=== PATIENT | female | born 1995 | race Caucasian/White ===

== ENCOUNTER 2019-12-15 07:41 | Observation (INO) | payer OTHER, SELFPAY ==
[2019-12-15] VITALS (13 sets, daily range): BP systolic 118–166; BP diastolic 78–103; PULSE 93–119; RESP 14–24; TEMP 36.8–37.2; O2SAT 98–100; BMI 41.5
--- NOTE | 2019-12-15 07:58 | ECG_ITS ---
Measurements Intervals [place] Rate: 89 P: 22 CA: 148 QRS: 11 QRSD: 76 T: 8 QT: 325 QTc: 397 Interpretive Statements SINUS RHYTHM BORDERLINE T WAVE ABNORMALITY- ANT/INF LEADS BASELINE ARTIFACT- I, II, III, AVF BORDERLINE ECG Electronically Signed On 12-15-2019 8:14:27 CDT by Frederic Gusman D.O.
[2019-12-15 08:12] LABS: Basophils Absolute Auto 0.1 K/mm3 (0.0-0.1); Basophils Percent Auto 0.8 % (0.2-1.2); Eosinophils Absolute Auto 0.3 K/mm3 (0-0.3); Eosinophils Percent Auto 4.3 % (0-4.4); Hematocrit 39.4 % (37.0-47.0); Hemoglobin 12.7 g/dL (12.0-15.0); Immature Granulocyte Absolute 0.03 K/mm3 (0.00-0.031); Immature Granulocyte Percent A 0.4 % (0-0.5); Lymphocytes Absolute Auto 2.28 K/mm3 (0.9-3.2); Lymphocytes Percent Auto 31.4 % (18.3-44.2); Mean Corpuscular HGB Conc 32.2 g/dl (32-36); Mean Corpuscular Hemoglobin 27.3 pg (26-34); Mean Corpuscular Volume 84.7 fl (80-100); Mean Platelet Volume 9.4 fl (7.4-10.4); Monocytes Absolute Auto 0.5 K/mm3 (0.1-0.6); Monocytes Percent Auto 6.6 % (2.6-8.5); Neutrophils Absolute Auto 4.1 K/mm3 (1.3-6.7); Neutrophils Percent Auto 56.5 % (45.5-73.1); Platelet Count Result 394 k/mm3 (150-375); Red Blood Count 4.65 M/mm3 (4.2-5.4); Red Cell Distribution Width 13.8 % (11.5-14.5); White Blood Count 7.3 K/mm3 (4.5-10.0)
--- NOTE | 2019-12-15 08:15 | PC.NURSE ---
Spoke with pharmacist Kassy from [place] [facility]. They will be faxing information about the potential drug overdose.
[2019-12-15 08:17] LABS: Add Urine Microscopic? YES; Appearance Urine Clear (Clear); Bacteria Urine Trace /hpf; Bilirubin Urine Negative (Negative); Blood Urine Negative (Negative); Color Urine Yellow (Yellow); Glucose Urine UA Negative (Negative); Ketones Urine Trace mg/dL (Negative); Leukocyte Esterase Ur Trace LEU/UL (Negative); Mucus Urine Rare /lpf; Nitrate Urine Negative (Negative); Protein Urine 2+ mg/dL (Negative); Squamous Epithelial Cell Urine Many /hpf (Few); Urobilinogen Urine Negative mg/dL (<2.0)
[2019-12-15 08:24] LABS: Acetaminophen < 10 ug/mL (10-30); Ethanol < 10 mg/dL (<10); Salicylate < 1.0 mg/dL (2-20)
[2019-12-15 08:25] LABS: Alanine Aminotransferase 14 U/L (4-35); Albumin Level 4.3 g/dL (3.5-5.1); Alkaline Phosphatase 53 U/L (38-126); Aspartate Amino Transferase 21 U/L (14-36); Bilirubin,Total 0.3 mg/dL (0.2-1.3); Blood Urea Nitrogen 11 mg/dL (7-17); Calcium 9.1 mg/dL (8.4-10.2); Carbon Dioxide 24 mmol/L (22-30); Chloride 107 mmol/L (98-107); Estimated CRCL calculation 119 ml/min; Estimated Glomerular Filt Rate > 60; Glucose 112 mg/dL (65-105); Potassium 3.8 mmol/L (3.4-5.0); Sodium 139 mmol/L (137-145)
[2019-12-15 08:28] LABS: Amphetamine Screen Urine Negative (Negative); Barbiturate Screen Urine Negative (Negative); Benzodiazepines Screen Urine Negative (Negative); Cannabinoid Screen Urine Negative (Negative); Cocaine Screen Urine Negative (Negative); Methadone Screen Urine Negative (Negative); Opiate Screen Urine Negative (Negative); Phencyclidine Screen Urine Negative (Negative)
--- NOTE | 2019-12-15 08:45 | ED.OVERDOSE ---
HPI - Overdose General Chief Complaint: Overdose Stated Complaint: SI History of Present Illness HPI Narrative: Patient is a 24-year-old female who presents ER with a suicide attempt by overdosing on Effexor. She took 20 tablets of 150 mg strength Effexor. She ingested around 630/7 a.m. She reports she has had increased stress over the last month trying to move out of her boyfriend's parents house. She was in a fight with some coworkers today that caused her to attempt to end her life. She attempted suicide one other time when she was a teenager but was not hospitalized for this. She has not been using any drugs or alcohol that could be affecting her ability to make decisions. No HI/hallucinations. Patient reports she has been cutting as well to alleviate her stress and cut her right leg near the buttock a few days ago. Related Data Home Medications Medication Instructions Recorded Confirmed venlafaxine 150 mg PO DAILY 12/15/19 12/15/19 Allergies Allergy/AdvReac Type Severity Reaction Status Date / Time nickel AdvReac Rash Verified 08/06/19 09:24 Review of Systems Review of Systems: All systems reviewed & are unremarkable except as noted in HPI and below Psychiatric: Psychiatric: Reports depression, Denies homicidal ideation and Reports suicidal ideation [facility] Past Medical History Medical History (Updated 12/15/19 @ 10:39 by Brice Mendez MD) Anxiety Depression Previous known suicide attempt PTSD (post-traumatic stress disorder) Surgical History Surgical History (Updated 12/15/19 @ 10:24 by Brice Mendez MD) No pertinent past surgical history Social History Social History (Updated 12/15/19 @ 10:24 by Brice Mendez MD) Smoking status: Never smoker Exam Narrative: Exam Narrative: GENERAL: Well-appearing, obese, and tearful. HEAD: Normocephalic, atraumatic. ENT: Mucous membranes moist. CHEST: Clear to auscultation. No respiratory distress. HEART: Regular rate and rhythm. No murmur heard. Normal peripheral pulses. ABDOMEN: Soft, nontender, nondistended. EXTREMITIES: Normal range of motion. No edema. SKIN: Warm, dry, no rash. NEURO: Alert and oriented x3. PSYCH: Depressed and tearful, endorses suicidal ideation, no homicidal ideation. Denies hallucinations and does not seem to be responding to internal stimuli. Course Course Emergency Course: Accepted by the hospitalist service. Patient will need to be observed for 24 hours due to increased risks of seizures for the next 24 hours according to poison control. Vital Signs Vital signs: Vital Signs Temperature 98.9 F 12/15/19 07:38 Pulse Rate 110 H 12/15/19 07:38 Respiratory Rate 18 12/15/19 07:38 Blood Pressure 166/78 H 12/15/19 07:38 Pulse Oximetry 99 12/15/19 07:38 Temperature 98.9 F 12/15/19 07:38 Pulse Rate 98 12/15/19 09:53 Respiratory Rate 24 H 12/15/19 09:53 Blood Pressure 118/78 12/15/19 09:53 Pulse Oximetry 100 12/15/19 09:53 MDM - Overdose Lab Data Result diagrams: 12/15/19 08:03 12/15/19 08:03 Labs: Lab Results 12/15/19 12/15/19 12/15/19 Range/Units 08:03 08:03 08:03 WBC 7.3 (4.5-10.0) K/mm3 RBC 4.65 (4.2-5.4) M/mm3 Hgb 12.7 (12.0-15.0) g/dL Hct 39.4 (37.0-47.0) % MCV 84.7 (80-100) fl MCH 27.3 (26-34) pg MCHC 32.2 (32-36) g/dl RDW 13.8 (11.5-14.5) % Plt Count 394 H (150-375) k/mm3 MPV 9.4 (7.4-10.4) fl Immature Gran % (Auto) 0.4 (0-0.5) % Neut % (Auto) 56.5 (45.5-73.1) % Lymph % (Auto) 31.4 (18.3-44.2) % [place] % (Auto) 6.6 (2.6-8.5) % Eos % (Auto) 4.3 (0-4.4) % Baso % (Auto) 0.8 (0.2-1.2) % Lymph # (Auto) 2.28 (0.9-3.2) K/mm3 [place] # (Auto) 0.5 (0.1-0.6) K/mm3 Eos # (Auto) 0.3 (0-0.3) K/mm3 Baso # (Auto) 0.1 (0.0-0.1) K/mm3 Abs Immat Gran (auto) 0.03 (0.00-0.031) K/mm3 Absolute Neuts (auto) 4.1 (1.3-6.7) K/mm3 Absolute Nuclea
[2019-12-15 09:17] LABS: Creatine Kinase 79 U/L (30-135)
[2019-12-15] MEDS: SODIUM CHLORIDE 0.9% IV 1,000 ML 999 ML IV CONT (09:31)
--- NOTE | 2019-12-15 10:21 | PC.NURSE ---
Kassy from [place] [facility] called back for update about Pt. status. Pt. currently stable.
[2019-12-15] MEDS: SODIUM CHLORIDE 0.9% IV 1,000 ML 125 ML IV CONT ×2 (11:00→19:55)
--- NOTE | 2019-12-15 11:50 | ADMGEN ---
This patient, Clau Junior, was admitted to Intensive Care Unit-8. Patient/family oriented to hospital policies and general routines including ID bracelet, bed and alarms, visiting hours, pain management, procedures, bathroom and other care routines, personal items, smoking policy, room service/diet, and visiting hours. Valuables list has been completed. Information on how to activate the Rapid Response Team has been discussed. Patient/Family are encouraged to report perceived risks to care and to ask questions if they do not understand what they are told or what they should do.
--- NOTE | 2019-12-15 16:06 | PM.IMHP ---
H&P: HPI History of Present Illness Chief complaint: suicide attempt,overdose Narrative: Clau Junior is a 24 year old female who has a history of having depression and anxiety. The patient has been on a Effexor. She has been feeling stressed out over the last month. She is also a cutter. She cuts to relieve the pain. The patient is very anxious about covid 19. She is fearful of people getting too close to her. There is a gentleman at her work that constantly gets too close to her on purpose. She also has a boss that she feels is very area get. He says very negative things about the working environment and causes stress at her work place. They are provided and 95 mask at work. She wears her mask every day when she goes to work. She works for [employer]. She is also stressed out about living with her boyfriend's mother at this time. His mother is immunosuppressed and she is fearful of breaking the virus home to his mother. She is not having any symptoms. No fever no chills. Today she went to work as usual and had that bad and interaction with a co-worker. She felt like she could not control it was going on except for her own life. She felt like she could not control the situation which she could control unknown body. She decided to overdose. She took 20/150 mg of Effexor around 6:37 a.m. this morning every [employer] to work about 5:00 a.m. this morning. She did have previous suicide attempt when she was younger. She stated that she took many [id number] medications educated her recall what all she took at that time. She was not admitted at that time. However she has been in [place] lower before. She knew she needed help at that time and got admitted to catheter. Patient is awake and answering questions without difficulty. IV fluids were started on her she was admitted to the intensive care unit. Review of Systems Review of Systems: All systems reviewed & are unremarkable except as noted in HPI and below Constitutional: Constitutional: Reports as per HPI and Reports no additional constitutional complaints Eyes: Eyes: Reports as per HPI and Reports no additional eye complaints ENT: Reports system reviewed and no additional complaints, except as documented and Reports Normal hearing present Cardiovascular: Cardiovascular: Reports no additional cardiovascular complaints Respiratory: Respiratory: Reports no additional respiratory complaints and Reports no additional respiratory complaints Gastrointestinal: Gastrointestinal: Reports as per HPI and Reports no additional gastrointestinal complaints Musculoskeletal: Musculoskeletal: Reports no additional musculoskeletal complaints Integumentary/Breasts: Skin/Breast: Reports system reviewed and no additional complaints, except as docu and Reports as per HPI Neurologic: Reports system reviewed and no additional complaints, except as documented, Reports as per HPI and Reports Normal hearing present Psychiatric: Psychiatric: Reports no additional psychiatric complaints and Reports as per HPI Endocrine: Endocrine: Reports no additional endocrine complaints Hematologic/Lymphatic: Hematologic/Lymphatic: Reports no additional hematologic/lymphatic complaints Allergic/Immunologic: Allergic/Immunologic: Reports no additional allergic/immunologic complaints [facility] Past Medical History Medical History (Updated 12/15/19 @ 16:17 by Rebecca Canela NP) Anxiety Depression Previous known suicide attempt PTSD (post-traumatic stress disorder) Surgical History Surgical History No pertinent past surgical history Family History Family History Father Heart disease Diabetes mellitus Mother Heart disease Diabetes mellitus Social History Social History (Updated 12/15/19 @ 16:21 by Rebecca Canela NP) Social History: 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
[2019-12-16] VITALS (10 sets, daily range): BP systolic 123–133; BP diastolic 83–92; PULSE 78–106; RESP 20–26; TEMP 36.7–37.2; O2SAT 96–100
[2019-12-16] MEDS: SODIUM CHLORIDE 0.9% IV 1,000 ML 125 ML IV CONT (03:34)
[2019-12-16 05:11] LABS: Basophils Percent Auto 0.5 % (0.2-1.2); Eosinophils Absolute Auto 0.3 K/mm3 (0-0.3); Eosinophils Percent Auto 3.5 % (0-4.4); Hematocrit 36.3 % (37.0-47.0); Hemoglobin 11.6 g/dL (12.0-15.0); Immature Granulocyte Absolute 0.04 K/mm3 (0.00-0.031); Immature Granulocyte Percent A 0.5 % (0-0.5); Lymphocytes Percent Auto 34.2 % (18.3-44.2); Mean Corpuscular Hemoglobin 27.8 pg (26-34); Mean Corpuscular Volume 86.8 fl (80-100); Mean Platelet Volume 9.5 fl (7.4-10.4); Monocytes Absolute Auto 0.4 K/mm3 (0.1-0.6); Monocytes Percent Auto 4.9 % (2.6-8.5); Neutrophils Absolute Auto 4.6 K/mm3 (1.3-6.7); Neutrophils Percent Auto 56.4 % (45.5-73.1); Platelet Count Result 342 k/mm3 (150-375); Red Blood Count 4.18 M/mm3 (4.2-5.4); White Blood Count 8.2 K/mm3 (4.5-10.0)
[2019-12-16 05:28] LABS: Alanine Aminotransferase 11 U/L (4-35); Albumin Level 3.6 g/dL (3.5-5.1); Alkaline Phosphatase 46 U/L (38-126); Aspartate Amino Transferase 19 U/L (14-36); Bilirubin,Total 0.3 mg/dL (0.2-1.3); Blood Urea Nitrogen 6 mg/dL (7-17); Calcium 8.2 mg/dL (8.4-10.2); Carbon Dioxide 26 mmol/L (22-30); Chloride 105 mmol/L (98-107); Estimated CRCL calculation 140 ml/min; Estimated Glomerular Filt Rate > 60; Glucose 89 mg/dL (65-105); Magnesium 1.9 mg/dL (1.6-2.3); Potassium 4.2 mmol/L (3.4-5.0); Sodium 138 mmol/L (137-145)
[2019-12-16 07:09] LABS: Free T4 Free Thyroxine Reflex 0.73 ng/dL (0.78-2.19)
[2019-12-16] MEDS: ENOXAPARIN 40 MG/0.4 ML SYRINGE SUB-Q (07:44)
--- NOTE | 2019-12-16 10:10 | PM.IMPN ---
Progress Note: A&P Assessment and Plan (1) Suicide attempt: Code(s): T14.91XA - Suicide attempt, initial encounter Status: Acute Assessment and Plan: Patient states she has had suicidal thoughts recently. She intentional took Effexor yesterday morning in a suicide attempt. She has a previous attempt according to the chart. Care coordination working on placement. She is stable for transfer. (2) Drug overdose: Qualifiers: Encounter type: initial encounter Injury intent: intentional self-harm Qualified Code(s): T50.902A - Poisoning by unspecified drugs, medicaments and biological substances, intentional self-harm, initial encounter Code(s): T50.901A - Poisoning by unspecified drugs, medicaments and biological substances, accidental (unintentional), initial encounter Status: Acute Assessment and Plan: Intentional drug overdose due to depression, anxiety with taking Effexor 150mg x 20 tabs at work. Mildly tachycardia and elevated BP but overall appears to have tolerated this well. Contineu tele. (3) Anxiety: Code(s): F41.9 - Anxiety disorder, unspecified Status: Chronic Assessment and Plan: Patient on venlafaxine and hydroxyzine at home both of which are on hold at this time. (4) Depression: Code(s): F32.9 - Major depressive disorder, single episode, unspecified Status: Chronic Assessment and Plan: Stable mood. Wellbutrin on hold due to the overdose. Subjective Date/time seen: 12/16/19 10:10 Interval history: 24yo female here for intentional drug overdose in a suicide attempt. Patient states she was frustrated with her living condition and stress at work as well as the current COVID pandemic. She denies any exposure to COVID but is worried that she might give it to her boyfriends mother who is chronically ill. She denies any stressors with her boyfriend. She had slight chest pain yesterday but today feels well. She denies nausea, vomiting, SOB or CP. She eating small amounts. Exam Narrative: Exam Narrative: Gen - NARD Chest - CTA bilaterally, nml RR CV - RRR S1/S2; Tele showing occasional sinus tachycardia Abd - Soft, NT/ND, Positive BS Ext - No pedal edema Neuro - Alert and oriented. Nonfocal exam. Psych - Nml mood and affect; good eye contact. Skin - Warm and dry Objective Data Vital Signs Vital Signs: Vital Signs - 24 hr 12/15/19 10:37 12/15/19 10:45 12/15/19 11:31 Temperature 98.2 F 98.7 F Pulse Rate 110 H 119 H Respiratory Rate 14 16 Blood Pressure 126/80 131/94 H Pulse Oximetry 100 99 12/15/19 12:00 12/15/19 14:00 12/15/19 16:00 Temperature 98.2 F 98.8 F Pulse Rate 108 H 119 H 105 H Respiratory Rate 16 23 H Blood Pressure 148/103 H 148/102 H Pulse Oximetry 100 98 12/15/19 18:00 12/15/19 19:59 12/15/19 22:00 Temperature 98.3 F Pulse Rate 107 H 96 93 Respiratory Rate 20 Blood Pressure 136/93 H Pulse Oximetry 98 12/15/19 22:31 12/16/19 00:00 12/16/19 02:00 Temperature 98.4 F Pulse Rate 101 H 106 H 88 Respiratory Rate 22 H 20 Blood Pressure 123/83 Pulse Oximetry 99 100 12/16/19 02:12 12/16/19 03:59 12/16/19 06:00 Temperature 98.0 F Pulse Rate 87 84 90 Respiratory Rate 20 22 H Blood Pressure 125/83 Pulse Oximetry 97 99 Intake/Output Intake/Output: Intake & Output 12/13/19 12/14/19 12/15/19 12/16/19 23:59 23:59 23:59 23:59 Intake Total 3520 1480 Output Total 600 1650 Balance 2920 -170 Meds/Results Medications: Active Medications Generic Name Dose Route Start Last Admin Trade Name Jonathanq PRN Reason Stop Dose Admin Acetaminophen 650 mg 12/15/19 10:22 Tylenol Tablet PO Q4H PRN Mild Pain (1-3) or Fever Enoxaparin Sodium 40 mg 12/16/19 09:00 12/16/19 07:44 Lovenox SUB-Q 40 mg DAILY PIPER Administration Sodium Chloride 1,000 mls @ 125 mls/hr 12/15/19 10:25 12/16/19 03:34 Normal Saline
--- NOTE | 2019-12-20 19:51 | PM.TDS ---
Transfer Discharge Sum: Prov Provider Date of admission: 12/15/19 10:22 Primary care physician: UNKNOWN,DOCTOR Admitting clinician: Kwesi Jane MD Discharging clinician: Bertrand King date of transfer: 12/16/19 Receiving physician/facility: [facility] DS: Diagnosis Admitting Diagnosis Admitting Diagnosis: Suicide attempt, initial encounter Discharge Diagnosis (1) Suicide attempt: Code(s): T14.91XA - Suicide attempt, initial encounter Status: Acute Assessment and Plan: Patient states she has had suicidal thoughts recently. She intentional took Effexor yesterday morning in a suicide attempt. She has a previous attempt according to the chart. She is stable for transfer. (2) Drug overdose: Qualifiers: Encounter type: initial encounter Injury intent: intentional self-harm Qualified Code(s): T50.902A - Poisoning by unspecified drugs, medicaments and biological substances, intentional self-harm, initial encounter Code(s): T50.901A - Poisoning by unspecified drugs, medicaments and biological substances, accidental (unintentional), initial encounter Status: Acute Assessment and Plan: Intentional drug overdose due to depression, anxiety with taking Effexor 150mg x 20 tabs at work. Mildly tachycardia and elevated BP but overall appears to have tolerated this well. (3) Anxiety: Code(s): F41.9 - Anxiety disorder, unspecified Status: Chronic Assessment and Plan: Patient on venlafaxine and hydroxyzine at home both of which are on hold at this time. (4) Depression: Qualifiers: Depression Type: major depressive disorder Major depression recurrence: recurrent Active/Remission status: currently active Major depression episode severity: severe Psychotic features: without psychotic features Qualified Code(s): F33.2 - Major depressive disorder, recurrent severe without psychotic features Code(s): F32.9 - Major depressive disorder, single episode, unspecified Status: Chronic Assessment and Plan: Stable mood. Wellbutrin on hold due to the overdose. Transfer Discharge Sum: Med Medications Active and Home Medications: Home Medications hydroxyzine HCl 10 mg PO DAILY 12/15/19 [History Confirmed 12/15/19] norgestimate-ethinyl estradiol [Sprintec (28)] 1 tablet PO DAILY 12/15/19 [History Confirmed 12/15/19] venlafaxine 150 mg PO DAILY 12/15/19 [History Confirmed 12/15/19] Transfer Discharge Sum: Hosp Hospital Course Hospital course: Clau Junior is a 24 year old female Time Spent with Patient Time attestation: Total time spent providing and/or coordinating transfer services: Exam Narrative: Exam Narrative: Gen - NARD Chest - CTA bilaterally, nml RR CV - RRR S1/S2; Tele showing occasional sinus tachycardia Abd - Soft, NT/ND, Positive BS Ext - No pedal edema Neuro - Alert and oriented. Nonfocal exam. Psych - Nml mood and affect; good eye contact. Skin - Warm and dry
== END 2019-12-16 20:23 ==
LOC: ANHED 10:23 → ANHICU 10:36
PROVIDERS: Nurse Practitioner; Admitting Provider Internal Medicine; Emergency Provider Emergency Medicine; Visit Provider Internal Medicine
DX: T43.212A Poisoning by selective serotonin and norepinephrine reuptake inhibitors, intentional self-harm, initial encounter (principal); R00.0 Tachycardia, unspecified; R03.0 Elevated blood-pressure reading, without diagnosis of hypertension; Z91.5 Personal history of self-harm; F41.9 Anxiety disorder, unspecified; F33.2 Major depressive disorder, recurrent severe without psychotic features
CPT/HCPCS: 36415; 80053; 80307; 81001; 81025; 82550; 83735; 84439; 84443; 85025; 93005; 96360; 96361; 96372; 99285; G0378; G0379; J1650; J7030

== ENCOUNTER 2022-02-28 13:51 | Emergency (ER) | payer BC, OTHER, SELFPAY ==
[2022-02-28 14:05] VITALS: BP 128/83; PULSE 66; RESP 16; TEMP 36.6; O2SAT 98
--- NOTE | 2022-02-28 14:15 | ED.FEMALEGU ---
HPI - Female Genitourinary General Stated complaint: Preg Test Time Seen by Provider: 02/28/22 14:15 Source: patient Mode of arrival: ambulatory Limitations: no limitations History of Present Illness HPI Narrative: 26-year-old female presents with complaint of no period for 3 months. Is here for a past. Has taken several test at home and all are negative. States that she does not have a PCP or SYSTEM SAFETY MANAGER to follow-up with. She is having no other symptoms other than a missed period. All systems reviewed and negative except as noted above. Related Data Allergies Allergy/AdvReac Type Severity Reaction Status Date / Time nickel AdvReac Rash Verified 02/28/22 14:01 Review of Systems Review of Systems: CONSTITUTIONAL: Denies fever, chills, or sweats. EYES: Denies visual changes, redness, or discharge. ENT: Denies rhinorrhea, congestion, sore throat, or otalgia. CARDIOVASCULAR: Denies chest pain, palpitations, or edema. RESPIRATORY: Denies cough or dyspnea. GASTROINTESTINAL: Denies abdominal pain, nausea, vomiting, or diarrhea. GENITOURINARY: Denies dysuria or hematuria. Reports no period for 3 months. SKIN: Denies rash or itching. MUSCULOSKELETAL: Denies back pain, joint pain, or myalgia. NEUROLOGIC: Denies headache, numbness, or weakness. PSYCHIATRIC: Denies anxiety or depression. All other systems reviewed are negative, except as documented in HPI. 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 She lives with her boyfriend and his mother. No children. Occasionally drinks alcohol. No marijuana or illicit drugs. Lifelong nonsmoker. She is a full code and she designates her boyfriend's Wyatt to be the durable power state attorney for healthcare. Smoking status: Never smoker Alcohol intake: unknown Substance use: unknown Substance use type: does not use Gender identity (if verbalized by the patient): Female Spiritual care concerns: No Agree to blood products: Yes Comments At time of signature, agree with nursing past medical, surgical, social and family history. There is no relevant family history pertinent to the presenting complaint. Exam Narrative: GENERAL: This is a well-nourished, well-developed patient, in no apparent distress. HEAD: normocephalic, atraumatic. EYES: PERRL. Sclera clear/white. Vision is grossly intact. EARS: External ears normal NOSE: External nose normal NECK: Neck supple, non-tender without lymphadenopathy, masses or thyromegaly. CARDIOVASCULAR: Regular rate and rhythm without murmurs, gallops, or rubs. RESPIRATORY: Clear to auscultation. Breath sounds equal bilaterally. No wheezes, rales, or rhonchi. SKIN: warm, Dry, intact with no suspicious lesions or rash, good texture and turgor. NEURO: awake, alert, and oriented to person, place and time. There were no obvious focal neurologic abnormalities. EXTREMITIES: No joint tenderness, effusion, or edema noted. Course Course Level of Care: Express Care Visit Vital Signs Vital signs: Vital Signs Temperature 36.6 C 02/28/22 14:05 Pulse Rate 66 02/28/22 14:05 Respiratory Rate 16 02/28/22 14:05 Blood Pressure 128/83 02/28/22 14:05 Pulse Oximetry 98 02/28/22 14:05 Oxygen Delivery Room Air 02/28/22 14:05 Temperature 36.6 C 02/28/22 14:05 Pulse Rate 66 02/28/22 14:05 Respiratory Rate 16
== END 2022-02-28 14:16 | disposition home or self-care (01) ==
PROVIDERS: Emergency Provider Nurse Practitioner Family
DX: N91.2 Amenorrhea, unspecified (principal); F41.9 Anxiety disorder, unspecified; F32.A Depression, unspecified
CPT/HCPCS: 81025; 99212; G0463